=== PATIENT | female | born 1985 | race Caucasian/White ===

== ENCOUNTER → 2021-03-11 | Outpatient (CLI) | payer OTHER ==
--- NOTE | 2021-03-11 17:39 | REP ---
INDICATION: PREG, DATING/ANATOMY IF POSSIBLE. COMPARISON: None. TECHNIQUE: Real-time sonographic evaluation of the gravid uterus performed. FINDINGS: Estimated gestational age based on today's ultrasound is 25 weeks 3 days , EDC 06/21/2021. The exam order states that there is an on certain date of last menstrual period, I am given an estimated gestational age by LMP of 22 weeks 0 days with EDC 07/11/2021. if this is truly accurate then today's measurements indicate greater than expected growth. Presentation: Breech Placenta fundal, anterior, grade 0, without evidence of placenta previa. heart rate is recorded at 126 beats per minute. Amniotic fluid is subjectively normal. VERNA 12.3, normal 9.7-21.6. Closed cervical length is measured at 3.8 cm. Biometry chart: BPD: 61 mm, 24 weeks 6 days, greater than 95th percentile. HC: 232 mm, 25 weeks 2 days, greater than 95th percentile AC: 212 mm, 25 weeks 5 days, greater than 95th percentile Femur length: 47 mm, 25 weeks 4 days, greater than 95th percentile HC to AC ratio: 1.09, normal range 1.04-1.23. Estimated weight: 824g, greater than 97th percentile. anatomy: Cranium: Grossly normal Lateral Ventricles/Choroid Plexus: Grossly normal Posterior Fossa/Cerebellum: Grossly normal Nose/lips/profile: Grossly normal Four chamber heart: Not well seen due to position Right ventricular outflow tract: Not well seen due to position Left ventricular outflow tract: Not well seen due to position Left-sided stomach: Grossly normal Kidneys: Grossly normal Bladder: Grossly normal Cord Insertion: Grossly normal 3 vessel cord: Grossly normal Spine: Grossly normal, except for sacral spine IMPRESSION: Viable single intrauterine gestation as above. If the provided estimated gestational age based on LMP is accurate, then the current measurements indicate greater than expected growth. Somewhat limited anatomy evaluation due to position. <Electronically signed by Zana Mandujano > 03/11/21 [id number]
== END ==
LOC: M RAD 15:45
PROVIDERS: ATTEND Obstetrics & Gynecology
DX: Z36.9 Encounter for antenatal screening, unspecified (principal); Z3A.25 25 weeks gestation of pregnancy

== ENCOUNTER 2021-06-12 11:42 | Inpatient (IN) | payer OTHER ==
[2021-06-12] VITALS (7 sets, daily range): BP systolic 101–116; BP diastolic 57–67
[~2021-06-12] VITALS: Ht 162.6 cm; Wt 77.1 kg
[2021-06-12] MEDS ORDERED: TUMS500C PO (11:54)
[2021-06-12] MEDS ORDERED: MULTTAB20 PO (11:54)
[2021-06-12] MEDS ORDERED: LR 1,000 ML IV ONE (12:10)
[2021-06-12] MEDS ORDERED: LACTATED RINGER'S 1000 ML IV STA (13:17)
[2021-06-12] MEDS ORDERED: LR 1,000 ML IV SCH ×2 (13:20→21:55)
[2021-06-12] MEDS ORDERED: TRANEXAMIC ACID INJection 1,000 MG in NS 100 ML IV PRN (13:20)
[2021-06-12] MEDS ORDERED: CARBOPROST TROMETHAMINE 250 MCG/ML AMP IM PRN (13:20)
[2021-06-12] MEDS ORDERED: BUPIVACAINE HCL 0.25% 10ML VIAL SC SCH (13:20)
[2021-06-12] MEDS ORDERED: METHYLERGONOVINE MALEATE 0.2 MG/ML VIAL (J2210) IM PRN (13:20)
[2021-06-12] MEDS ORDERED: BICITRA 30ML SOLN UDC PO ONE (13:20)
[2021-06-12] MEDS ORDERED: OXYTOCIN DRIP 30 UNITS in IV 1 EA IV PRN (13:20)
[2021-06-12] MEDS ORDERED: ceFAZolin SOD 2 GM in IV 1 EA IV ONE (13:20)
--- NOTE | 2021-06-12 13:37 | REP ---
INDICATION: Non-reassuring APFTs. Repeat limited exam. COMPARISON: Comparison is made with outpatient obstetric sonography done earlier on the same date TECHNIQUE: Limited Ob sonography. Four biophysical profile. FINDINGS: Biophysical profile score is 8 out of a possible 8. VERNA for the current exam is calculated at 9.7 cm, (7.3-23.8 cm). heart rate is recorded at 122 beats per minute. IMPRESSION: Biophysical profile score 8/8. <Electronically signed by Je Cantu > 06/12/21 [id number]
[2021-06-12] MEDS ORDERED: ceFAZolin SOD 1 GM in D5W MINI-BAG PLUS 50 ML IV ONE ×2 (14:00→14:15)
[2021-06-12] MEDS ORDERED: HOME MED LIST COMPLETE! XX SCH (14:10)
--- NOTE | 2021-06-12 14:23 | HPEPDOC ---
Obstetrical History & Physical General Date of Admission 12 JUN 2021 History of Present Illness 35 yo at 38w5d with SALVATORE of 21 JUN 2021 presents to L&D from the clinic for non-reassuring NST. She had growth US today that was noted to have IUGR at 8%tile with 2753 grams. She has very scant care this with first appointment being at 25w3d and then no care until today at 38w5d. She denies headache, chest pain, RUQ pain, and reports positive movement. Interval History: AMA IUGR 8%tile EFW 2753 grams Hx of section Hx of pre-eclampsia Former tobacco use: 1.5 ppd tobacco use, Quit: FEB 2008 Limited care: 2 visits Chief Complaint: Other Information Provided By: Patient Age: 35 : 2 Term: 1 Pre-term: 0 Abortions: 0 Livin Dating Final EDC: Jun 21, 2021 Final EDC by: 2nd trimester (US) EGA at Admission: 38.5 Antepartum Course Height (inches): 64 Pre- weight (lbs.): 135 Admission Weight (lbs.): 169 Change in Weight (lbs.): 34 Past Medical History Past Obstetrical History : Past Obstetrical History: Multigravida Date of Delivery: Oct 25, 2007 Type of Delivery: Ceserean section Sex of : Male Weight of Infant (grams): 3147 Complications: Yes MENHADEN VESSEL PILOT History: No pertinent history Past Medical History Medical History Hx of pre-eclampsia, AMA, Hx of section, Former tobacco user 1.5 ppd x20 years Quit: FEB 2021, AMA Surgical History: section Family History Significant Family History: Cancer Social History Marital Status: Family situation: Spouse/partner home Psychosocial History: No pertinent psych hx * Smoker: former Smoker Alcohol: Denies Drugs: denies Abuse Violence Screening Have you been hit/kicked/slapp: No Have you been sexually assault: No Allergies Coded Allergies: No Known Allergies (Unverified , 06/12/21) Medications Scheduled No122/Iron/Folic Acid ( Multi Tablet) 1 Each Tablet, 1 TAB PO DAILY Scheduled PRN Calcium Carbonate (Tums) 200 Mg Tab.chew, 2 TAB PO Q4H PRN for HEARTBURN Physical Examination Physical Examination GENERAL: Alert and oriented times three. BREAST: . ABDOMEN: Gravid and non-tender to touch. FETUS: Is vertex (VTX) by sterile vaginal examination (SVE), fetus is vertex (VTX) by Jason. HEART RATE: Regular rate and rhythm. LUNGS: Clear to auscultation (CTA). EXTREMITIES: No edema. No clonus. Deep tendon reflexes (DTRs) + 2. Vital Signs/I&O Vital Signs Date Time Temp Pulse Resp B/P (MAP) Pulse Ox O2 Delivery O2 Flow Rate FiO2 06/12/21 12:02 98.3 85 16 116/65 (82) Room Air BPP: 8/8 VERNA: 9.7 cm Pertinent Laboratoy Data Blood Type: O+ RBC Antibody Screen: Negative HIV: Negative Hepatitis B: Negative Rapid Plasma Reagin: Nonreactive Rubella: Immune Varicella: Immune Chlamydia/Gonorrhea: Negative Group B Streptococcus: Negative Glucose Tolerance Test: 115 Assessment Heart Rate (FHR): 125 Variability: Moderate Accelerations: Positive Decelerations: None Tocometer Contractions: Yes Frequency: irregular Multi-drug resistant Organism: No history of MDRO Assessment/Plan Assessment IUP at 38w5d IUGR AMA Limited care Hx of section Hx of pre-eclampsia Plan Admit and orient. Telecommunications Clerk and consent. Diet: NPO. Group B Streptococcus (GBS) unknown. Labs and intravenous (IV) per unit protocol. Counseled on Pitocin and induction of labor (IOL). Lactated Ringers (LR): Bolus 1000 mL, then at 125 mL/hr. Dr Tuttle at the bedside to discussed patient status and plan After discussion with the patient, it was mutually decided to proceed with RLTCS today She last ate at 1015 and plan for section at 1630. Consent forms were signed with the patient SUSANNAH CARPENTER CNM Jun 12, 2021 13:21
[2021-06-12 15:15] LABS: HEMATOCRIT 31.6 % (36.0-47.0); HEMOGLOBIN 10.7 g/dl (12.0-15.5); MEAN CORPUSCULAR HEMOGLOBIN 30.5 pg (27.0-33.0); MEAN CORPUSCULAR HGB CONC 33.9 g/dl (32.0-36.5); PLATELET COUNT, AUTOMATED 161 10^3/uL (150-450); RED BLOOD COUNT 3.51 10^6/uL (4.00-5.40); WHITE BLOOD COUNT 8.3 10^3/uL (4.0-10.0)
--- NOTE | 2021-06-12 18:59 | ROOPDOC ---
[facility] Report Of Operation Report of Operation DATE OF PROCEDURE: 06/12/21 PREPROCEDURE DIAGNOSES: 38+5 weeks gestation, growth restriction, advanced maternal age, limited care POSTPROCEDURE DIAGNOSES: same, pelvic adhesive disease, delivered PROCEDURE PERFORMED: repeat delivery, lysis of pelvic adhesions SURGEON: Moni Meadows DO HEALTH INFORMATION TECHNICIAN: Lynn Perez MD ANESTHESIA: epidural ESTIMATED BLOOD LOSS: Approximately 500 mL. COMPLICATIONS: none. REMARKS: none. FINDINGS: Prior skin incision noted to be higher than ideal, lower limits of prior incision utilized. Adhesions from bladder to uterus and omentum to abdominal wall lysed. Mid transverse uterine incision performed. The baby was delivered cephalic, 8/9, 2860g. The uterus was closed in two layers. The uterus, ovaries, and tubes otherwise appeared normal. Bleeding from the left inferior rectus belly required additional suturing for hemostasis. Anayeli was applied to all surgical sites. The fascia was closed with PDS and the skin secured with steri strips and optifoam. I do not recommend the patient attempt a vaginal delivery in the future. SPECIMENS REMOVED: placenta. PROCEDURE NOTE: Ms. Lynn is a 35 yo at 38w5d with SALVATORE of 21 JUN 2021 who presented to L&D from the clinic for non-reassuring NST. She had growth US today that was noted to have growth restriction at 8%tile. She has very scant care this with first appointment being at 25w3d and then no care until today at 38w5d. The decision to have a vaginal delivery vs repeat was discussed and the patient desired repeat . Written consent was obtained. 2g of ancef and bicitra were administered pre-operatively. The patient was taken to the OR where she was given an epidural. She was positioned supine with her arms out and a left tilt. A lucio was placed in the bladder. The abdomen was prepped and draped in a sterile fashion. The anesthesia was tested to be adequate. A final time out was performed. A scalpel was used make a pfannensteil incision at the lower limit of the previous scar as it was higher than ideal. The incision was carried to the fascia which was then scored. The curved ulloa scissors were used to extend the fascial incision in a curvilinear fashion. The superior fascial edge was grasped with the koker clamps and the muscle dissected from the fascia with the scalpel and blunt dissection. The same procedure was repeated on the inferior fascial e dge. The muscles were bluntly and the peritoneum entered bluntly. The lower uterine segment was identified and the bladder blade was placed. The bladder reflection was elevated and a bladder flap was made with the metzaumbaum scissors and blunt dissection. Adhesions from the omentum to the uterus and bladder to the uterus were lysed. The bladder blade was replaced. A transverse incision was made in the lower uterine segment and extended bluntly. The amniotic sac was ruptured spontaneously and the fluid was clear. The head was then elevated to the hysterotomy and the bladder blade removed. With the assistance of abdominal pressure the baby was delivered and had spontaneous movement and cry. The baby was then handed to the pediatrics team. The cord was clamped x2 and cut. Cord blood and gasses were obtained. The placenta was then delivered via manual extraction and was in-tact. The uterus was exteriorized and debris swept from inside with a moist lap. The hysterotomy was then closed with 0-monocryl in a running locking fashion. A horizontal imbricating layer was then made with 0-monocryl. The uterus was firm. Pool suction and a moist lap were used to clean the posterior cul-de-sac. The ovaries and fallopian tubes appeared normal. The uterus was replaced. The gutters were then cleaned with a moist lap. The hysterotomy was re-inspected off tension and remained hemostatic. Anayeli was applied. The muscles and fascia were inspected and were hemostatic after application of figure of 8 stitches with 0- vicryl to the left inferior rectus muscle belly, Anayeli was applied. The peritoneum was reapproximated with 2-0 vicryl. The fascia was then re-approximated with 0-PDS in a running fashion. It was palpated to have no defects on completion. The subcutaneous tissue was then irrigated. 0.25% marcaine was injected at the level of the fascia. It was re- approximated with 2-0 vicryl in 1 running layers, additional figure of 8 stitches were required on the right side for hemostasis, Anayeli was applied. The skin was then closed with 3-0 monocryl in a running fashion. Steri strips and oiptfoam was used to dress the incision. The sponge, lap, and needle counts were correct x2. There were no complications. The patient tolerated the procedure well. I DO NOT RECOMMEND THE PATIENT ATTEMPT A VAGINAL DELIVERY IN THE FUTURE. MONI MEADOWS. DO Jun 12, 2021 18:59
[2021-06-12] MEDS ORDERED: NALOXONE INJ 0.4MG/1ML VIAL (J2310 PER 1MG) IV PRN ×2 (20:00)
[2021-06-12] MEDS ORDERED: NALBUPHINE HCL 10 MG/ML AMP (J2300) IV PRN (20:00)
[2021-06-12] MEDS ORDERED: ONDANSETRON 4MG/2ML VIAL IV PRN ×2 (20:00→21:55)
[2021-06-12] MEDS ORDERED: diphenhydrAMINE 50MG/ML VIAL (J1200) IV PRN (20:00)
[2021-06-12] MEDS ORDERED: METOCLOPRAMIDE INJ 10MG/2ML VIAL (J2765 PER 1) IV PRN ×2 (20:00→21:55)
[2021-06-12] MEDS ORDERED: OXYTOCIN INJ 10 UNITS/ML VIAL (J2590) As Ordered ONE (20:07)
[2021-06-12] MEDS ORDERED: MORPHINE PRES-FREE INJ 10 MG/10 ML VIAL (J2274) As Ordered ONE (20:07)
[2021-06-12] MEDS ORDERED: METOCLOPRAMIDE INJ 10MG/2ML VIAL (J2765 PER 1) As Ordered ONE (20:33)
[2021-06-12] MEDS ORDERED: ONDANSETRON 4MG/2ML VIAL As Ordered ONE (20:33)
[2021-06-12] MEDS ORDERED: MIDAZOLAM INJ 2MG/2ML VIAL (J2250 PER 1MG) As Ordered ONE (20:43)
[2021-06-12] MEDS ORDERED: KETAMINE HCL 200 MG/20 ML VIAL As Ordered ONE (20:44)
[2021-06-12 20:46] LABS: CORD GAS HCO3 A 23.3 MEQ/L; CORD GAS O2 SAT A 24.3 %; CORD GAS PCO2 A 54.8 mmHg; CORD GAS PH A 7.246 UNITS; CORD GAS PO2 A 13.9 mmHg; CORD GAS SBC A 18.5 MEQ/L
[2021-06-12 20:48] LABS: CORD GAS ABE V -6.6; CORD GAS HCO3 V 20.2 MEQ/L; CORD GAS O2 SAT V 62.6 %; CORD GAS PCO2 V 44.6 mmHg; CORD GAS PH V 7.274 UNITS; CORD GAS PO2 V 27.9 mmHg; CORD GAS SBC V 18.3 MEQ/L; CORD GAS TCO2 V 21.6 MEQ/L
[2021-06-12] MEDS ORDERED: PHENYLephrine 500MCG 5ML (100MCG/ML) SYRINGE As Ordered ONE (20:49)
--- NOTE | 2021-06-12 21:44 | POST-OPPD ---
Postoperative Procedure Note Date Of Procedure: Jun 12, 2021 DATE OF PROCEDURE: 06/12/21 PREPROCEDURE DIAGNOSES: 38+5 weeks gestation, growth restriction, advanced maternal age, limited care POSTPROCEDURE DIAGNOSES: same, pelvic adhesive disease, delivered PROCEDURE PERFORMED: repeat delivery, lysis of pelvic adhesions SURGEON: Efren Meadows DO AWNING HANGER: Lynn Perez MD ANESTHESIA: epidural ESTIMATED BLOOD LOSS: Approximately 500 mL. COMPLICATIONS: none. REMARKS: none. FINDINGS: Prior skin incision noted to be higher than ideal, lower limits of p rior incision utilized. Adhesions from bladder to uterus and omentum to abdominal wall lysed. Mid transverse uterine incision performed. The baby was delivered cephalic, 8/9, 2860g. The uterus was closed in two layers. The uterus, ovaries, and tubes otherwise appeared normal. Bleeding from the left inferior rectus belly required additional suturing for hemostasis. Anayeli was applied to all surgical sites. The fascia was closed with PDS and the skin secured with steri strips and optifoam. I do not recommend the patient attempt a vaginal delivery in the future. SPECIMENS REMOVED: placenta. EFREN MEADOWS DO Jun 12, 2021 21:44
[2021-06-12] MEDS ORDERED: SIMETHICONE 80MG CHEW TAB PO PRN (21:45)
[2021-06-12] MEDS ORDERED: DOCUSATE SODIUM 100MG CAPSULE PO PRN (21:45)
[2021-06-12] MEDS ORDERED: MEPERIDINE INJ 25 MG/ML VIAL (J2175) IV PRN (21:55)
[2021-06-12] MEDS ORDERED: KETOROLAC 30 MG/ML 1ML VIAL IV PRN (21:55)
[2021-06-12] MEDS ORDERED: fentaNYL 100 MCG/2 ML INJECTION (J3010) IV PRN (21:55)
[2021-06-12] MEDS ORDERED: PERCOCET 5MG/325MG TAB PO PRN (21:55)
[2021-06-12] MEDS ORDERED: fentaNYL 100 MCG/2 ML INJECTION (J3010) As Ordered ONE (21:56)
[2021-06-12] MEDS ORDERED: oxyCODONE 5MG TAB As Ordered ONE (22:24)
[2021-06-12] MEDS: oxyCODONE 5MG TAB PO PRN (22:27)
[2021-06-12] MEDS: ACETAMINOPHEN 500 MG TAB PO SCH (22:28)
[2021-06-13] VITALS (7 sets, daily range): BP systolic 90–117; BP diastolic 50–62
[2021-06-13] MEDS ORDERED: IBUPROFEN 800 MG TAB PO SCH
[2021-06-13 02:25] LABS: AMPHETAMINES URINE REFLEX NEGATIVE (NEGATIVE); BARBITURATES URINE REFLEX NEGATIVE (NEGATIVE); CANNABINOIDS URINE REFLEX NEGATIVE (NEGATIVE); COCAINE METABOLITE URINE REFLE NEGATIVE (NEGATIVE); METHADONE URINE REFLEX NEGATIVE (NEGATIVE); PHENCYCLIDINE URINE REFLEX NEGATIVE (NEGATIVE)
[2021-06-13] MEDS: oxyCODONE 5MG TAB PO PRN ×4 (04:29→23:45)
[2021-06-13 05:15] LABS: BENZODIAZEPINES URINE REFLEX PENDING CONFIRMATION (NEGATIVE); OPIATES URINE REFLEX PENDING CONFIRMATION (NEGATIVE)
--- NOTE | 2021-06-13 07:07 | IPNPDOC ---
Progress Note Date of Service: Jun 13, 2021 Day#: 1 Progress Note Ms. Lynn is a 35 yo POD1 from a RCD at 38wk for FGR, 8/9, 2860g. She has very scant care this . She has been ambulating, voiding spontaneously without issue and tolerating regular diet. Breast feeding without issue. Reports lochia is less than a normal period. Patient is ambulating well. Reports some cramping with . Denies any pain. She has a lucio in place. Interval History: AMA IUGR 8%tile EFW 2753 grams Hx of section Hx of pre-eclampsia Former tobacco use: 1.5 ppd tobacco use, Quit: FEB 2008 Limited care: 2 visits Taking non-prescribed pills while in patient, positive for benzodiazepines and opiates on UDS (post ), AAOx3 this AM OBJECTIVE: VITAL SIGNS: Within normal limits, afebrile. Alert and oriented times three. No increased WOB Heart rate: non-tachy Abdomen: Fundus firm at U-2. Soft, NTTP. [Minimal] lochia per pt ASSESSMENT: Ms. Lynn is a 35 yo POD1 from a RCD at 38wk for FGR, 8/9, 2860g. Vitals within normal limits, afebrile, hemodynamically stable with no evidence of infection. PLAN: 1. Discharge to home likely tomorrow. 2. Tylenol and Motrin for pain. 3. Encourage breast feeding and ambulation. 4. Undecided contraception, educated on options and risk of close interval 5. Routine PP visit in 2 and 6 weeks in clinic. 6. Discussed return precautions at length. 7. financial services internship consulted. 8. Encouraged ambulation, plan for lucio removal, DTV in 4h VS, I&O, 24H, Beanbonpio Vital Signs/I&O Vital Signs Date Time Temp Pulse Resp B/P (MAP) Pulse Ox O2 Delivery O2 Flow Rate FiO2 06/13/21 05:25 97.4 70 16 90/60 (70) 99 Room Air I&O- Last 24 Hours up to 6 AM 06/13/21 06:00 Intake Total 2250 ml Output Total 800 ml Balance 1450 ml Laboratory Data 24H LABS Laboratory Tests 2 06/12/21 13:50: Nucleated Red Blood Cells % (auto) 0.0, Syphilis Serology NONREACTIVE, Hepatitis B Surface Antigen NEGATIVEL 06/12/21 14:48: Serology Scanned Report Hepatitis B Testing 06/12/21 17:21: Coronavirus (COVID-19)(PCR) NEGATIVE 06/12/21 20:32: Cord Arterial Blood pH 7.246, Cord Arterial Blood PCO2 54.8, Cord Arterial Blood PO2 13.9, Cord Arterial Blood HCO3 23.3, Cord Arterial Blood Total CO2 25.0, Cord Arterial Blood Base Excess -5.0, Cord Arterial Base Excess (Standard 18.5, Cord Arterial Bld Oxygen Saturation 24.3, Cord Venous Blood pH 7.274, Cord Venous Blood PCO2 44.6, Cord Venous Blood PO2 27.9, Cord Venous Blood HCO3 20.2, Cord Venous Blood Total CO2 21.6, Cord Venous Base Excess (Actual) -6.6, Cord Venous Base Excess (Standard) 18.3, Cord Venous Blood Oxygen Saturation 62.6 06/13/21 01:45: Urine Opiates Screen PENDING CONFIRMATIONH, Urine Methadone Screen NEGATIVE, Urine Barbiturates Screen NEGATIVE, Urine Phencyclidine Screen NEGATIVE, Urine Amphetamines Screen NEGATIVE, Urine Benzodiazepines Screen PENDING CONFIRMATIONH, Urine Cocaine Metabolite Screen NEGATIVE, Urine Cannabinoids Screen NEGATIVE CBC/BMP Laboratory Tests 06/12/21 13:50 MONI MEADOWS DO Jun 13, 2021 07:07
[2021-06-13] MEDS: IBUPROFEN 800 MG TAB PO SCH ×2 (08:25→16:12)
[2021-06-13] MEDS: PRENATAL VITAMINS CHEWABLE TABLET PO SCH (08:25)
[2021-06-13] MEDS: ACETAMINOPHEN 500 MG TAB PO SCH ×2 (08:25→20:27)
[2021-06-13] MEDS ORDERED: BOOSTRIX/ADACEL VACCINE (DIPHTH/PERTUSS/ACELL/TETANUS) 0.5ML SYR IM ONE (09:00)
[2021-06-14] MEDS: IBUPROFEN 800 MG TAB PO SCH ×2 (00:31→07:58)
[2021-06-14 02:00] VITALS: BP 129/63
[2021-06-14 06:00] VITALS: BP 130/75
[2021-06-14] MEDS ORDERED: IBUP80TA PO (07:22)
[2021-06-14] MEDS ORDERED: ACET-683 PO (07:22)
[2021-06-14] MEDS ORDERED: DOCU100C16 PO (07:22)
[2021-06-14] MEDS ORDERED: OXYC-517 PO (07:22)
[2021-06-14] MEDS: PRENATAL VITAMINS CHEWABLE TABLET PO SCH (09:06)
[2021-06-14] MEDS: ACETAMINOPHEN 500 MG TAB PO SCH ×2 (09:10→13:31)
[2021-06-14 09:15] VITALS: BP 130/75
[2021-06-14 10:27] VITALS: BP 108/53
[2021-06-14] MEDS: oxyCODONE 5MG TAB PO PRN (10:42)
[2021-06-14] MEDS ORDERED: BOOSTRIX/ADACEL VACCINE (DIPHTH/PERTUSS/ACELL/TETANUS) 0.5ML SYR IM ONE (12:00)
--- NOTE | 2021-06-16 18:08 | IPN ---
PROGRESS NOTE DATE: 06/13/2021 This patient requested circumcision of her male . After discussing the risks and benefits of circumcision, the medical to nonmedical indications, the penile block and aftercare, expressed understanding of penile block, aftercare, and bleeding, signed the consent form, all questions were answered, 20 minute discussion. We await the clearance by the ui programmer.
== END 2021-06-14 13:55 | disposition home or self-care (01) | DRG 773 ==
LOC: M LDO 11:42 → M LDI 13:47 → M OBS 22:50
PROVIDERS: ADMIT Registered Nurse Maternal Newborn; ATTEND Obstetrics & Gynecology
PROC: 10D00Z1 Extraction of Products of Conception, Low, Open Approach (ICD-10-PCS; principal; 2021-06-12 19:45)
DX: O36.5930 Maternal care for other known or suspected poor fetal growth, third trimester, not applicable or unspecified (principal); Z3A.38 38 weeks gestation of pregnancy; Z36.89 Encounter for other specified antenatal screening; O36.8330 Maternal care for abnormalities of the fetal heart rate or rhythm, third trimester, not applicable or unspecified; O34.211 Maternal care for low transverse scar from previous cesarean delivery; Z37.0 Single live birth

== ENCOUNTER → 2021-06-12 | Outpatient (CLI) | payer OTHER ==
[~2021-06-12] MED LIST: MULTTAB20 PO; TUMS500C PO
--- NOTE | 2021-06-12 10:30 | REP ---
INDICATION: 38 GROWTH UNCERTAIN DATES NO CARE. COMPARISON: Comparison sonography is from March 11, 2021 TECHNIQUE: Transabdominal obstetric sonography. FINDINGS: Scanning through the gravid uterus demonstrates a viable single intrauterine gestation in cephalic lie. motion is observed and heart rate is recorded at 122 beats per minute. A right lateral and cristina fundal placenta is seen, grade 3, without evidence of placenta previa. Closed cervical length is not seen due to head position. Transabdominally. No extrauterine abnormality is observed. Amniotic fluid is subjectively low normal. VERNA is low normal as well, 7.6 cm (7.3-23.8 cm).. The following anatomic structures are identified today and felt to be unremarkable: cranium, nose and lips, four-chamber heart with left and right ventricular outflow tract views, diaphragm, left-sided stomach, abdominal wall cord insertion, right and left kidney, urinary bladder, spine, three-vessel cord. Biometry chart: BPD 9.2 cm, 37 weeks 3 days Head circumference 32.0 cm, 36 weeks 0 days Abdominal circumference 31.2 cm, 35 weeks 1 day Femur length 7.0 cm, 36 weeks 0 days Humeral length 6.2 cm, 35 weeks 6 days HC AC ratio normal 1.02 Cephalic index normal 0.83 Estimated weight 2753 g, 6 lb 1 oz, 12th percentile for 38 weeks 1 day SD ratio in the umbilical cord artery by Doppler normal 2.48 IMPRESSION: Viable single intrauterine gestation at 36 weeks 1 days by today's composite sonographic criteria. SALVATORE by today's sonography July 09, 2021. No complication identified. Expected gestational age estimate based on previous sonography 35 weeks 2 days SALVATORE by prior sonography July 15, 2021. Low normal amniotic fluid, VERNA 7.6 cm. <Electronically signed by Je Cantu > 06/12/21 [id number]
== END ==
LOC: M RAD 09:20
PROVIDERS: ATTEND Obstetrics & Gynecology
DX: Z36.89 Encounter for other specified antenatal screening (principal); Z3A.38 38 weeks gestation of pregnancy